=== PATIENT | female | born 1990 | race Caucasian/White ===

== ENCOUNTER 2020-03-20 13:13 | Emergency (ER) | payer SELFPAY ==
[2020-03-20 13:23] VITALS: BP 121/56; PULSE 68; RESP 18; TEMP 36.2; O2SAT 99; BMI 20.4
--- NOTE | 2020-03-20 13:27 | DI.RAD.S_ITS ---
PROCEDURE: XR CHEST 2V INDICATIONS: shortness of breath, coughing up blood TECHNIQUE: 2 views of the chest were acquired. COMPARISON: None. FINDINGS: Surgical changes and devices: None. Lungs and pleura: Lungs are clear. No pleural effusions or pneumothorax. Mediastinum: Mediastinal contours are normal. Heart size is normal. Bones and chest wall: No suspicious bony abnormalities. Soft tissues appear unremarkable. IMPRESSION: No acute cardiopulmonary abnormality. Dictated by: Yosi Hunter M.D. on 03/20/2020 at 14:09 Approved by: Yosi Hunter M.D. on 03/20/2020 at 14:09
[2020-03-20 13:52] LABS: COVID19 -Nasal RAPID Negative (Negative)
--- NOTE | 2020-03-20 15:02 | ED.URI ---
HPI - URI/Sore Throat <REMI Hyatt - Last Filed: 03/20/20 15:13> General Chief Complaint: Upper Respiratory Symptoms Stated Complaint: SOB, cough Time Seen by Provider: 03/20/20 14:45 Source: patient Mode of arrival: Ambulatory Limitations: no limitations History of Present Illness HPI Narrative: 30-year-old female who is an everyday smoker, presents to the emergency department for intermittent episodes of coughing up blood. She states that this happens occasionally when she has a coughing fit. However, in February it is happened approximately 3 times. She states last week she went from smoking a pack a day of cigarettes to vaping marijuana and nicotine. Patient states when she has a coughing fit, there is a small amount of chuncks of blood toward the end of her coughing fit. She states this usually spontaneously resolves. Patient states she has noticed increasing wheezing when she walks up the stairs over the past few months. She denies any fevers, rhinorrhea, chest pain, shortness of breathat rest, nausea, vomiting, diarrhea, or any other concerns. Related Data Previous Rx's Medication Instructions Recorded albuterol sulfate 2 puff INHALATION Q4-6H PRN #6.7 g 03/20/20 Allergies Allergy/AdvReac Type Severity Reaction Status Date / Time No Known Drug Allergies Allergy Verified 03/20/20 13:27 Review of Systems <REMI Hyatt - Last Filed: 03/20/20 15:13> Review of Systems Narrative: REVIEW OF SYSTEMS: GENERAL: Denies fevers. HENT: No head trauma. CARDIOVASCULAR: No chest pain. RESPIRATORY: Reports cough, see HPI. GASTROINTESTINAL: No nausea, vomiting, or diarrhea. MUSCULOSKELETAL: No weakness or injury. INTEGUMENTARY: No rash. Patient History <REMI Hyatt - Last Filed: 03/20/20 15:13> Medical History History of cigarette smoking Social History Smoking Status: Current every day smoker Smoking Status: Current every day smoker tobacco type: cigarettes and vaping alcohol intake frequency: 0-2 drinks per day Substance Use Type: marijuana Exam <REMI Hyatt - Last Filed: 03/20/20 15:13> Initial Vital Signs Initial Vital Signs: Vital Signs Temperature 97.2 F L 03/20/20 13:23 Pulse Rate 68 03/20/20 13:23 Respiratory Rate 18 03/20/20 13:23 Blood Pressure 121/56 L 03/20/20 13:23 Pulse Oximetry 99 03/20/20 13:23 PHYSICAL EXAMINATION: GENERAL: Awake alert, answers questions probably. HENT: Normocephalic, atraumatic. EYES: Conjunctiva pink, sclera white, no periorbital swelling. No discharge. CHEST: Normal to inspection and without deformities. CARDIOVASCULAR: S1 and S2 sounds normal. Regular rate and rhythm, no murmurs, clicks, or bruits. RESPIRATORY: Normal respiratory rate, trachea midline, airway patent. No stridor, nasal flaring or accessory muscle use. Able to speak in full sentences. Lungs are clear in all buckley without wheeze, rhonchi, or crackles. No coughed observed during examination. MUSCULOSKELETAL: Normal gait and coordination. Equal tone and mass bilaterally. EXTREMITIES: Moves all extremities. SKIN: Warm, dry, soft, appropriate color for ethnicity. No lesions. NEURO: Alert and Oriented X 3. Good coordination. No ataxia or cognitive issues. PSYCH: Appropriate affect and mood. <Debra Bean DO - Last Filed: 03/20/20 19:33> Initial Vital Signs Initial Vital Signs: Vital Signs Temperature 97.2 F L 03/20/20 13:23 Pulse Rate 68 03/20/20 13:23 Respiratory Rate 18 03/20/20 13:23 Blood Pressure 121/56 L 03/20/20 13:23 Pulse Oximetry 99 03/20/20 13:23 Scores <REMI Hyatt - Last Filed: 03/20/20 15:13> PERC Score Age greater than or equal to 50 years: No Heart rate greater than or equal to 100 bpm: No Course <REMI Hyatt - Last Filed: 03/20/20 15:13> Course Course Narrative: Patient given spacer in the emergency department. Orders Ordered: ED Orders 03/20/20 13:27 Chest [XR chest 2V] Stat 03/20/20 13:29 COVID19 Stat Vital Signs Vital signs: Vital Signs - 8 hr 03/20/20 13:23 03/20/20 15:05 Temperature 97.2 F L Pulse Rate 68 70 Respiratory Rate 18 14 Blood Pressure 121/56 L 122/70 Pulse Oximetry 99 99 <Debra Bean DO - Last Filed: 03/20/20 19:33> Orders Ordered: ED Orders 03/20/20 13:27 Chest [XR chest 2V] Stat 03/20/20 13:29 COVID19 Stat Vital Signs Vital signs: Vital Signs - 8 hr 03/20/20 13:23 03/20/20 15:05 Temperature 97.2 F L Pulse Rate 68 70 Respiratory Rate 18 14 Blood Pressure 121/56 L 122/70 Pulse Oximetry 99 99 [facility] - URI/Sore Throat <SHANICE HyattP - Last Filed: 03/20/20 15:13> Medical Records Attestation: I reviewed the patient's medical records. Lab Data Attestation: I reviewed the patient's lab results. Labs: Lab Results 03/20/20 Range/Units 13:29 SARS-CoV-2 (PCR) Negative (Negative) Imaging Data Chest x-ray: Radiologist's Impression: [address] [id number] ReportSigned Patient: Nel Madrigal [facility]#: [id number]: 1990Acct:[id number]/Sex: 30 / FDate of Service: 03/20/20Loc: EDAccession Number: [id number] Procedure: XR chest 2V Ordering Provider: Debra Bean D.O. PROCEDURE: XR CHEST 2V INDICATIONS: shortness of breath, coughing up blood TECHNIQUE: 2 views of the chest were acquired. COMPARISON: None. FINDINGS: Surgical changes and devices: None. Lungs and pleura: Lungs are clear. No pleural effusions or pneumothorax. Mediastinum: Mediastinal contours are normal. Heart size is normal. Bones and chest wall: No suspicious bony abnormalities. Soft tissues appear unremarkable. IMPRESSION: No acute cardiopulmonary abnormality. Dictated by: Yosi Hunter M.D. on 03/20/2020 at 14:09 Approved by: Yosi Hunter M.D. on 03/20/2020 at 14:09 [facility] Narrative Medical decision making narrative: 30-year-old female presenting to the emergency department for coughing up blood. She is awake, alert, no acute respiratory distress. Patient has been is significant smoker, smoking a pack a day for year and has recently switched to being. I suspect patient episodes of coughing up blood a most likely related to reactive airway disease and smoking given that these episodes only occur after significant coughing fits. These episodes are infrequent, and it appears the blood is most likely in her mucus. Patient notices wheezing when she runs up the stairs, I suspect again that this most likely related to reactive airway disease given history of smoking. Less concern for DVT due to low risk factors, lack of shortness of breath or chest pain at rest, patient is not tachycardic or hypoxic, not tachypneic. Less concern for VAPI or community-acquired pneumonia given clear images on chest x-ray, clear lung exam. Less concern for viral etiology as coughing fits occur a few times a month, lack of other symptoms such as rhinorrhea or sore throat, and COVID-19 swab is negative. She was given an albuterol inhaler with a spacer to help with wheezing. She was encouraged to follow up with PCP as soon as possible. Return precautions given for new or worsening symptoms. Patient agreed to plan of care verbalized understanding. <Debra Bean, DO - Last Filed: 03/20/20 19:33> Lab Data Labs: Lab Results 03/20/20 Range/Units 13:29 SARS-CoV-2 (PCR) Negative (Negative) Discharge Plan Departure Patient Disposition: Home Clinical Impression: Smoking Exacerbation of reactive airway disease Qualifiers: Asthma severity: mild Asthma persistence: intermittent Qualified Code(s): J45.21 - Mild intermittent asthma with (acute) exacerbation Instructions: DI for Reactive Airway Disease-Adult Activity Restrictions/Additional Instructions: Thank you for entrusting me with your care today. As discussed, your chest x-ray is negative for any concerning findings. Your COVID-19 swab is negative. I suspect your increased cough is due to smoking and vaping. When you have coughing fits, significant coughing can cause tares in your tissue which cause bleeding. I prescribed you an inhaler to help with coughing fits. This can make you jittery and dizzy when you initially take it. Please take it with a spacer as much as possible. Follow-up with your primary care provider in the next few weeks for further evaluation. Return emergency department for any new or worsening symptoms especially fevers, worsening shortness of breath, or any other concerns. Prescriptions: New albuterol sulfate 90 mcg/actuation HFA aerosol inhaler 2 puff inhalation Q4-6H PRN (Reason: shortness of breath or wheezing) Qty: 6.7 RF: 0 <Debra Bean, - Last Filed: 03/20/20 19:33> Cosign ED Attending Fermin Attestation: I was immediately available in the department for consultation. Documentation has been reviewed.
[2020-03-20 15:05] VITALS: BP 122/70; PULSE 70; RESP 14; O2SAT 99
== END 2020-03-20 15:06 | disposition home or self-care (01) ==
PROVIDERS: Emergency Medicine; Emergency Provider Nurse Practitioner
DX: J45.21 Mild intermittent asthma with (acute) exacerbation (principal); R06.02 Shortness of breath; R04.2 Hemoptysis; F17.200 Nicotine dependence, unspecified, uncomplicated; F12.90 Cannabis use, unspecified, uncomplicated; Z20.822 Contact with and (suspected) exposure to COVID-19
CPT/HCPCS: 71046; 87635; 99283; C9803